=== PATIENT | female | born 1990 | race Hispanic/Latino ===

== ENCOUNTER 2018-03-23 15:33 | Emergency (ER) | payer BC ==
[2018-03-23] MEDS ORDERED: Sodium Chloride 0.9% 1,000 ML IV STA (16:04)
--- NOTE | 2018-03-23 16:07 | ED PDOC ---
HPI: Abdomen Time Seen by Provider: 03/23/18 15:48 Chief Complaint (Nursing): Abdominal Pain Chief Complaint (Provider): abd pain History Per: Patient History/Exam Limitations: no limitations Onset/Duration Of Symptoms: Days (today) Additional Complaint(s): Pt. with abd pain diffuse. Feels like a crampy bubbling pain. Has had similar multiple times for 3 years. Comes and goes away. Has come to ER many times all over the [place]. Seen by GI, PCP, and OBGYN with no findings for her pain. Had a exploratory laprascopy and no findings. Pt. on no meds except control. Pain comes on its own and goes away with meds. Had diarrhea today, nonbloody. No new food, travel, drinks, etoh, drugs, or anything different. Not sure what works in the ER. Has had multiple CT scans, ultrasounds, and x- rays with no findings. No dysuria or vaginal bleeding. Past Medical History Reviewed: Nursing Documentation, Vital Signs Vital Signs: Last Vital Signs Temp 97.5 F L 03/23/18 15:45 Pulse 76 03/23/18 15:45 Resp 18 03/23/18 15:45 BP 118/81 03/23/18 15:45 Pulse Ox 99 03/23/18 16:19 - Medical History Other PMH: chronic abd pain - Surgical History Other surgeries: exploratory laprascopy - Family History Family History: States: Unknown Family Hx - Social History Current smoker - smoking cessation education provided: No Alcohol: None Drugs: Denies - Home Medications Home Medications: Ambulatory Orders Medication Instructions Recorded Dicyclomine [Dicyclomine HCl] 10 mg PO BID PRN 5 Days cap 03/23/18 - Allergies Allergies/Adverse Reactions: Allergies Allergy/AdvReac Type Severity Reaction Status Date / Time acetaminophen [From Vicodin] Allergy RASH Verified 03/23/18 15:44 hydrocodone [From Vicodin] Allergy RASH Verified 03/23/18 15:44 Review of Systems ROS Statement: Except As Marked, All Systems Reviewed And Found Negative Gastrointestinal: Positive for: Abdominal Pain, Diarrhea Physical Exam - Reviewed Nursing Documentation Reviewed: Yes Vital Signs Reviewed: Yes - Physical Exam Appears: Positive for: Non-toxic, No Acute Distress Head Exam: Positive for: ATRAUMATIC, NORMAL INSPECTION, NORMOCEPHALIC Skin: Positive for: Normal Color, Warm, DRY Eye Exam: Positive for: EOMI, Normal appearance, PERRL ENT: Positive for: Normal ENT Inspection Neck: Positive for: Normal, Painless ROM Cardiovascular/Chest: Positive for: Regular Rate, Rhythm Respiratory: Positive for: CNT, Normal Breath Sounds Gastrointestinal/Abdominal: Positive for: Bowel Sounds, Soft, Tenderness ( diffuse). Negative for: Distended, Guarding Back: Positive for: Normal Inspection. Negative for: L CVA Tenderness, R CVA Tenderness Extremity: Positive for: Normal ROM. Negative for: Tenderness, Pedal Edema Neurologic/Psych: Positive for: Alert, Oriented - Laboratory Results Result Diagrams: 03/23/18 16:20 03/23/18 16:20 Interpretation Of Abn Labs: no acute Urine POC: Negative Urine dip results: Negative for: Leukocyte Esterase, Nitrate - ECG O2 Sat by Pulse Oximetry: 99 Pulse Ox Interpretation: Normal - Progress ED Course And Treament: 1618: States she does not want imaging at this time as she has had so many imaging studies. Will get basic blood work and tx symptoms. 1748: Stable. AAOx3. Pain free. Tolerated PO. Will fu with pcp and GI. Disposition - Clinical Impression Clinical Impression: Abdominal pain - Patient ED Disposition Is Patient to be Admitted: No Counseled Patient/Family Regarding: Studies Performed, Diagnosis, Need For Followup, Rx Given - Disposition Referrals: [facility] [Outside] - 03/24/18 Indio Raza MD, PhD [Staff Provider] - 03/24/18 Disposition: Routine/Home Disposition Time: 17:51 Condition: STABLE Additional Instructions: Return if not better in 3 days. Prescriptions: Dicyclomine [Dicyclomine HCl] 10 mg PO BID PRN 5 Days cap PRN Reason: Pain, Moderate (4-7) Instructions: Chronic Pain (DC) Forms: [employer] ([place]), [facility] ED School/Work Excuse
[2018-03-23 16:25] LABS: BASO % 0.7 % (0.0-2.0); EOS # 0.1 K/uL (0.0-0.7); EOS % 1.4 % (0.0-4.0); HEMOGLOBIN 12.5 g/dL (12.0-16.0); LYMPH % 30.1 % (20.0-40.0); MEAN CORPUSCULAR HEMOGLOBIN 30.3 pg (27.0-31.0); MEAN CORPUSCULAR HGB CONC 33.6 g/dL (33.0-37.0); MEAN PLATELET VOLUME 9.2 fl (7.2-11.7); MONO # 0.4 K/uL (0.0-0.8); MONO % 5.4 % (0.0-10.0); NEUT # 4.1 K/uL (1.8-7.0); NEUT % 62.4 % (50.0-75.0); RBC 4.12 Mil/uL (3.80-5.20); RED CELL DISTRIBUTION WIDTH 13.4 % (11.5-14.5); WHITE BLOOD COUNT 6.6 K/uL (4.8-10.8)
[2018-03-23 16:41] LABS: ALB/GLOB RATIO 1.5 (1.0-2.1); ALBUMIN 4.2 g/dL (3.5-5.0); ALT/SGPT 31 U/L (9-52); AST/SGOT 21 U/L (14-36); BLOOD UREA NITROGEN 15 mg/dl (7-17); CALCIUM 9.2 mg/dL (8.4-10.2); GFR AFRICAN-AMERICAN > 60; GFR NON-AFRICAN AMERICAN > 60; LIPASE 82 U/L (23-300)
[2018-03-23 18:06] VITALS: BP 127/78; PULSE 78; RESP 19; TEMP 96.6; O2SAT 98
== END 2018-03-23 18:10 | disposition home or self-care (01) ==
LOC: H.ER 15:33
DX: R10.9 Unspecified abdominal pain (principal); R19.7 Diarrhea, unspecified
CPT/HCPCS: 80053; 81025; 83690; 85025; 96374; 99283; J1885; J7040

== ENCOUNTER 2018-04-25 14:00 | Emergency (ER) | payer BC ==
[2018-04-25 14:10] VITALS: BP 116/74; PULSE 62; RESP 16; TEMP 97.5; O2SAT 100
[2018-04-25] MEDS ORDERED: Lidocaine 1% Inj (20ml) IJ STA (14:32)
--- NOTE | 2018-04-25 14:52 | ED PDOC ---
Lower Extremity Pain/Injury Time Seen by Provider: 04/25/18 14:14 Chief Complaint (Nursing): Lower Extremity Problem/Injury Chief Complaint (Provider): Left great toe pain History Per: Patient Additional Complaint(s): 27 year old female presents to the emergency department for evaluation of injury to her left great toe. The patient reports that about an hour ago she slammed her toe into a door causing injury. Patient states toenail is almost completely off. She states that she took ibuprofen for pain and it offered her some relief. Tetanus up to date. PMD: none Past Medical History Reviewed: Historical Data, Nursing Documentation, Vital Signs Vital Signs: Last Vital Signs Temp 97.5 F L 04/25/18 14:09 Pulse 62 04/25/18 14:09 Resp 16 04/25/18 14:09 BP 116/74 04/25/18 14:09 Pulse Ox 100 04/25/18 14:09 - Medical History PMH: No Chronic Diseases - Surgical History Other surgeries: laproscopy; bunion surgery - Family History Family History: States: No Known Family Hx - Living Arrangements Living Arrangements: With Friends/Others - Social History Current smoker - smoking cessation education provided: No Alcohol: Social Drugs: Denies - Immunization History Hx Tetanus Toxoid Vaccination: Yes - Home Medications Home Medications: Ambulatory Orders Medication Instructions Recorded Dicyclomine [Dicyclomine HCl] 10 mg PO BID PRN 5 Days cap 03/23/18 Cephalexin [Keflex] 500 mg PO TID #21 capsule 04/25/18 - Allergies Allergies/Adverse Reactions: Allergies Allergy/AdvReac Type Severity Reaction Status Date / Time acetaminophen [From Vicodin] Allergy RASH Verified 04/25/18 14:06 hydrocodone [From Vicodin] Allergy RASH Verified 04/25/18 14:06 Review of Systems ROS Statement: Except As Marked, All Systems Reviewed And Found Negative Musculoskeletal: Positive for: Foot Pain (Injury to left great toe) Physical Exam - Reviewed Nursing Documentation Reviewed: Yes Vital Signs Reviewed: Yes - Physical Exam Appears: Positive for: Well, Non-toxic, No Acute Distress Skin: Positive for: Normal Color. Negative for: Rash Eye Exam: Positive for: Normal appearance Extremity: Positive for: Other (partial nail avulsion of left great toe; dried blood noted with exposure of nail bed, no active bleeding). Negative for: Tenderness, Deformity, Swelling Neurologic/Psych: Positive for: Alert, Oriented - ECG O2 Sat by Pulse Oximetry: 100 (RA) Pulse Ox Interpretation: Normal Medical Decision Making Medical Decision Makin Initial Impression 27 year old female presenting with left great toe injury Initial plan: * Tylenol 975 mg PO * X-ray left foot 1430 Podiatry contacted for consult. Dr. Gerard, resident at bedside for toenail removal. As per resident, patient will be discharged with rx keflex. Advised NSAID's for pain and follow up with Dr. Patino next week in office. Documented by Naomi Wise acting as a scribe for Navya Hamlin PA-C. All medical record entries made by the Scribe were at my direction and personally dictated by me. I have reviewed the chart and agree that the record accurately reflects my personal performance of the history, physical exam, medical decision making, and the department course for this patient. I have also personally directed, reviewed, and agree with the discharge instructions and disposition. Disposition - Clinical Impression Clinical Impression: Toenail avulsion - Patient ED Disposition Is Patient to be Admitted: No Counseled Patient/Family Regarding: Studies Performed, Diagnosis, Need For Followup, Rx Given - Disposition Referrals: Frandy Patino, DPM [Doctor Podiatric Medicine] - Disposition: Routine/Home Disposition Time: 15:31 Condition: STABLE Additional Instructions: Take rx meds as directed. Over the counter motrin for pain. Keep area clean and dry. 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 Prescriptions: Cephalexin [Keflex] 500 mg PO TID #21 capsule Instructions: Toe Injury (DC), Nail Avulsion Forms: [employer] ([place]ian)
[2018-04-25] MEDS ORDERED: Lidocaine 1% Inj (20ml) ONE (14:57)
--- NOTE | 2018-04-25 15:20 | RAD ---
PROCEDURE: Left Foot Radiographs. HISTORY: trauma COMPARISON: None. FINDINGS: BONES: No acute fracture. JOINTS: Normal. SOFT TISSUES: Unremarkable. OTHER FINDINGS: None. IMPRESSION: No demonstrated fracture or dislocation.
--- NOTE | 2018-04-25 15:33 | CP.PCM.CON ---
History of Present Illness - History of Present Illness History of Present Illness: 27 y/o female with no significant PMHx seen in after after banging and injuring her left big toe. States she hit it approx 1 hour ago and immediately noticed the nail bleeding and lifting off. Came straight to ED. Noted swelling to the left big toe with pain graded a 5/10. Denies attempting any treatment. Denies F/ C/N/V/CP/SOB PSH: bunion surgery B/L All: Vicodin Soc: social EtOH; denies cigarette or illicit drug use Review of Systems - Review of Systems All systems: reviewed and no additional remarkable complaints except (per HPI) Past Patient History - Past Social History Alcohol: Social Drugs: Denies - PSYCHIATRIC Hx Substance Use: No - SURGICAL HISTORY Hx Surgeries: Yes - ANESTHESIA Hx Anesthesia: Yes Hx Anesthesia Reactions: No Meds Home Medications: Home Medication List Medication Instructions Recorded Confirmed Type Cephalexin [Keflex] 500 mg PO TID #21 capsule 04/25/18 Rx Allergies/Adverse Reactions: Allergies Allergy/AdvReac Type Severity Reaction Status Date / Time acetaminophen [From Vicodin] Allergy RASH Verified 04/25/18 14:06 hydrocodone [From Vicodin] Allergy RASH Verified 04/25/18 14:06 Physical Exam - Constitutional Appears: Well, Non-toxic, No Acute Distress - Extremities Exam Additional comments: LLE focused exam: VASC: DP/PT pulses are palpable 2/4 B/L. Cap refill time: < 3 seconds to all digits. Skin temperature warm to cool from proximal to distal. Mild localized edema to L hallux DERM: onycholysis at medial and distal aspects of nail with sanguinous drainage noted to left hallucal nail bed. No purulence noted. Mild ry nail erythema with swelling noted. No fluctuance, no malodor. NEURO: Epicritic and protective sensation intact ORTHO: mild tenderness to palpation of L hallucal nail - Neurological Exam Neurological exam: Alert, Oriented x3 - Psychiatric Exam Psychiatric exam: Normal Affect, Normal Mood Results - Vital Signs Recent Vital Signs: Last Vital Signs Temp 97.5 F L 04/25/18 14:09 Pulse 62 04/25/18 14:09 Resp 16 04/25/18 14:09 BP 116/74 04/25/18 14:09 Pulse Ox 100 04/25/18 15:31 Assessment & Plan - Assessment and Plan (Free Text) Assessment: 27 y/o male with left hallucal nail bed injury secondary to trauma Plan: Pt seen and evaluated in ED Discussed with attending Dr. Patino L foot x-ray (-) for acute osseous changes - no fractures or dislocations noted Hallux nail cleaned with saline and betadine 6cc of 1% Lidocaine plain injected in local block fashion to L hallux Aseptic excision of hallux nail plate with hemostat Pt tolerated procedure without incident Hallux nail bed dressed with bacitracin, DSD and ALONDRA bandage Pt advised to keep bandage clean/dry/intact for 48 hours After 48 hours, pt advised to wash toe in warm water and Epsom salt and apply antibiotic ointment with bandaid, to be changed daily Pt to follow up in office with Dr. Patnio within 1 week Thank you for allowing us to participate in this patient's care
== END 2018-04-25 15:40 | disposition home or self-care (01) ==
LOC: H.ER 14:00
DX: S91.202A Unspecified open wound of left great toe with damage to nail, initial encounter (principal); W22.8XXA Striking against or struck by other objects, initial encounter; Y92.89 Other specified places as the place of occurrence of the external cause

== ENCOUNTER 2018-06-08 07:16 | Day surgery (SDC) | payer BC ==
[2018-06-08] MEDS ORDERED: Lactated Ringer's 500 ML IV ONE (07:45)
[2018-06-08] MEDS ORDERED: Propofol 10 mg/ml Inj (20 ML) ONE (08:53)
[2018-06-08 09:41] VITALS: TEMP 97; O2SAT 100
[2018-06-08 09:54] VITALS: BP 114/76; PULSE 76; RESP 15
== END 2018-06-08 09:56 | disposition home or self-care (01) ==
LOC: H.ENDO 07:16
PROVIDERS: ATTEND Internal Medicine Gastroenterology
DX: R10.84 Generalized abdominal pain (principal); K64.8 Other hemorrhoids; K29.70 Gastritis, unspecified, without bleeding
CPT/HCPCS: 43239; 45380; 88305; J2001; J2704; J7120